=== PATIENT | female | born 1970 | race American Indian/Alaskan Native ===

== ENCOUNTER 2018-01-03 10:27 | Day surgery (SDC) | payer OTHER ==
[2018-01-01 08:16] VITALS: BMI 37.2
[2018-01-03 11:15] VITALS: O2SAT 100
[2018-01-03] MEDS ORDERED: Bupivacaine 0.25% 20 ML INJ IJ ONE (14:29)
[2018-01-03] MEDS ORDERED: Midazolam 2 MG/2 ML VIAL ONE (14:40)
[2018-01-03] MEDS ORDERED: Propofol 10 mg/ml Inj (20 ML) ONE (14:40)
[2018-01-03] MEDS ORDERED: Oxycodone/Acetaminophen 5/325 mg Tab PO PRN (15:06)
--- NOTE | 2018-01-03 15:06 | PCM.SURG1 ---
Surgeon's Initial Post Op Note - Surgeon's Notes Surgeon: Brooke Woods MD Butadiene Converter Helper: Anabela Angulo, PGY-2 Type of Anesthesia: IV Sedation, Local Pre-Operative Diagnosis: Port site irritation Operative Findings: See op report Post-Operative Diagnosis: Port site irritation Operation Performed: Removal of LIJ port Specimen/Specimens Removed: Port Estimated Blood Loss: EBL {In ML}: 2 Blood Products Given: N/A Drains Used: No Drains Post-Op Condition: Good Date of Surgery/Procedure: 01/03/18 Time of Surgery/Procedure: 15:06
[2018-01-03 16:04] VITALS: BP 106/67; PULSE 66; RESP 18; TEMP 97
--- NOTE | 2018-01-06 06:39 | OP ---
PROCEDURE DATE: 01/03/2018 PREOPERATIVE DIAGNOSIS: Port site irritation. POSTOPERATIVE DIAGNOSIS: Port site irritation. SURGEON: Brooke Woods MD INSURANCE SALESMAN: Anabela Angulo, PGY-2 ANESTHESIA: IV sedation and local anesthetic. ANESTHESIOLOGIST: Madelyn Armenta CRNA FINDINGS: Left IJ port. SPECIMEN: Port. ESTIMATED BLOOD LOSS: 2 mL. DRAINS: None. COMPLICATIONS: None. INDICATION FOR PROCEDURE: Brittani Cruiel is a 47 year-old female, who is status post breast cancer, requiring chemotherapy with left IJ Port-A-Cath insertion for chemotherapy. The patient has completed chemotherapy and now notes that the port site is irritating her, requests to have the port removed as it is no longer in use. The patient was consented for LIJ port removal. DESCRIPTION OF PROCEDURE: The patient was brought into the operating room and placed supine upon the operating table. IV sedation was given. The patient was prepped and draped in the usual sterile fashion. A time-out was performed, identifying the patient, the site, the procedure prior to the start of the procedure. An incision was made superior to the initial incision. The port catheter was encircled and dissected out and removed from the left IJ. The port appliance was then dissected out. Hemostasis was achieved. The site was then closed with 4-0 Monocryl with minimal blood loss. A sterile dressing was placed over the incision. The patient tolerated the procedure well. At the end of the procedure, all sponges, instruments and sutures were declared to be correct. The patient was aroused from IV sedation. The patient then moved from the operating table to the stretcher and was taken to the PACU in stable condition. Anabela Angulo DO Brooke Woods MD [facility]
--- NOTE | 2018-01-06 23:50 | OP ---
PROCEDURE DATE: 01/03/2018 PREOPERATIVE DIAGNOSIS: Port-A-Cath, status post breast cancer. POSTOPERATIVE DIAGNOSIS: Port-A-Cath, status post breast cancer. PROCEDURE: Removal of left-sided Port-A-Cath. SURGEON: Brooke Woods MD CLINIQUE COUNTER MANAGER: Anabela Angulo DO TYPE OF ANESTHESIA: Local with IV sedation. ANESTHESIA ADMINISTERED BY: Madelyn Armenta CRNA DESCRIPTION OF PROCEDURE: With the patient in the supine position under adequate general anesthesia, the left upper chest and lower neck were prepped and draped in usual sterile manner. The patient was noted to have a well-healed Port-A-Cath located on the pectoral region. The skin overlying insertion site incision was infiltrated with 1% lidocaine and a transverse incision was made, taken down to the hub of the port. When this had been completed, the catheter was identified and dissected free, and then with gentle traction, the catheter was extracted from the vein. No bleeding was noted. Gentle traction on the catheter was then provided to allow the port to be sharply dissected free of fibrous connections to the pocket, and a single suture was divided, and the port was removed. The operative site was examined for hemostasis and closure was performed with running subcuticular sutures of 4-0 Monocryl and Steri-Strips. Dry sterile dressing was applied. The patient tolerated the procedure well and transferred to the recovery room in stable condition. Estimated blood loss for the procedure was 2 mL. Brooke Woods MD
== END 2018-01-03 16:51 | disposition home or self-care (01) ==
LOC: C.SDS 10:27
PROVIDERS: ATTEND Specialist
DX: Z45.2 Encounter for adjustment and management of vascular access device (principal); Z85.3 Personal history of malignant neoplasm of breast; K21.9 Gastro-esophageal reflux disease without esophagitis
CPT/HCPCS: 36590; 88300; J2250; J2704; J3010